=== PATIENT | female | born 1990 | race Asian ===

== ENCOUNTER → 2018-12-23 | Outpatient (CLI) | payer SELFPAY | END | disposition home or self-care (01) | LOC: LABMAIN 12:38 | PROVIDERS: ATTEND Emergency Medicine | DX: J02.9 Acute pharyngitis, unspecified (principal) | CPT/HCPCS: 87081; 87430 ==

== ENCOUNTER → 2019-05-17 | Outpatient (CLI) | payer MEDICAID ==
[2019-05-17 09:06] VITALS: BP 106/68; PULSE 66; RESP 16; TEMP 98; BMI 20.8
--- NOTE | 2019-05-17 10:09 | P.HPOB ---
History of Present Illness H&P Date: 05/17/19 Chief Complaint: The patient is here for her routine gynecologic exam. This is a 29-year-old G0 with an LMP of 2017. The patient uses Nexplanon for control. This is her 2nd one. Her current one was placed in August 2017. The patient has been experiencing cramping with sexual intercourse and this can last for one or 2 days after sexual intercourse. This has been going on for about 1 1/2 months. She has been with her current partner for 2 months. The cramping was not initially noticed when she 1st became sexually active with her current partner. The cramping seems to occur immediately with sexual intercourse. She did have one day of vaginal discharge, but she states it did resolve. She tried taking a course of Bactrim which did not seem to help with the cramping. She denies fever, dysuria or urinary frequency. Her last pelvic exam was about 2 years ago. Review of Systems Her weight has been stable. She denies respiratory or cardiac problems. G.I.: she has had issues with constipation and hemorrhoids, but this is not new. Past Medical History Past Medical History: No Reported History Additional Past Medical History / Comment(s): PAST RN IV THERAPY HISTORY: She has no history of STDs. History of Any Multi-Drug Resistant Organisms: None Reported Past Surgical History: Breast Surgery Additional Past Surgical History / Comment(s): Left breast biopsy which showed fibrocystic changes. Past Psychological History: No Psychological Hx Reported Smoking Status: Never smoker Past Alcohol Use History: Occasional (2 or 3 per week) Past Drug Use History: None Reported Additional History: She is single and has been with her boyfriend since February 2019. She does not live with him. 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 - Past Family History Mother Additional Family Medical History / Comment(s): Fibrocystic changes of the breast. She denies family history of cancer of the breast, uterus, ovaries, or Colon. Father Family Medical History: No Reported History Medications and Allergies Home Medications Medication Instructions Recorded Confirmed Type Etonogestrel [Nexplanon] 1 implant SQ [id number] 05/17/19 05/17/19 History Allergies Allergy/AdvReac Type Severity Reaction Status Date / Time No Known Allergies Allergy Unverified 05/17/19 08:50 Exam Vital Signs Temp Pulse Resp BP Pulse Ox 05/17/19 08:55 98.0 F 66 16 106/68 98 Height 5'2", weight 114 pounds, BMI 20.9. This is a well-developed well-nourished female who is alert and oriented times 3 in no acute distress. HEENT: Within normal limits. NECK: Supple without mass or thyromegaly. CHEST AND LUNGS: Clear to auscultation. HEART: Regular rate and rhythm. BREASTS: there is a palpable lump measuring approximately 1.5 x 1.0 cm at the 3 o'clock position of the left breast. The lump is nontender and non- erythematosus. The lump is somewhat firm. She states this was where she had a biopsy several years ago which showed fibrocystic changes. She believes it has gotten slightly larger since she has been on Nexplanon for control. There are no other palpable masses. The breasts are nontender. AXILLARY EXAM: Negative for adenopathy. BACK: Negative for CVA tenderness. ABDOMEN: Soft, nontender, without palpable masses. PELVIC EXAM: Normal external genitalia. Cervix and vagina appear normal. There is no unusual discharge. There is no evidence of prolapse. The uterus is slightly retroverted, nongravid size and nontender. There are no palpable adnexal masses. There is mild left adnexal tenderness and no right adnexal tenderness. RECTAL EXAM: negative for mass or tenderness. EXTREMITIES: Nontender. IMPRESSION: 1. 29 year old female with a 1 1/2 month history of crampy dyspareunia with pelvic cramping for 1 to 2 days after sexual intercourse. 2. Left adnexal tenderness. 3. History of Nexplanon use for control. 4. Differential diagnosis will include ovarian cyst, STD such as GC or chlamydia, UTI, and less likely . 5. Left breast mass with history of fibrocystic changes. The mast measures approximately 1.5 x 1.0 cm. The mass has gotten slightly larger with Nexplanon use, according to the patient. PLAN: 1. Pap smear was performed. 2. Self breast awareness was discussed with the patient. 3. GC and chlamydia testing has been obtained from the cervix. 4. The patient will be scheduled for a pelvic ultrasound. The order slip was given to the patient. 5. Clean catch midstream urine has been obtained for a urinalysis, culture and sensitivity and urine hCG. 6. Left breast ultrasound was recommended. The order slip was given to the patient for this. Consider referral for further evaluation of the breast mass. 7. She was advised to return in one year for her annual well woman exam and PRN.
[2019-05-17 11:30] LABS: Amorphous Sediment,Urine Many /hpf; Appearance,Urine Turbid (Clear); Bilirubin,Urine Negative (Negative); Blood,Urine Negative (Negative); Color,Urine Yellow; Glucose,Urine (UA) Negative (Negative); Ketones,Urine Negative (Negative); Leukocyte Esterase,Urine Negative (Negative); Mucus,Urine Rare /hpf; Nitrite,Urine Negative (Negative); PH, Urine 6.5 (5.0-8.0); Protein,Urine Negative (Negative); Specific Gravity,Urine 1.024 (1.001-1.035); Urobilinogen,Urine <2.0 mg/dL (<2.0); WBC,Urine 1 /hpf (0-5)
[2019-05-18 16:03] LABS: C. trachomatis,PCR Negative (Neg,Equiv); Chlamydia trachomatis Source Cervix; N. gonorrhoeae,PCR Negative (Neg,Equiv); Neisseria Source Cervix
== END ==
LOC: WWCWWP 08:47
PROVIDERS: ATTEND Obstetrics & Gynecology
DX: N94.10 Unspecified dyspareunia (principal); R10.2 Pelvic and perineal pain
CPT/HCPCS: 81001; 81025; 87086; 87491; 87591

== ENCOUNTER → 2019-05-31 | Outpatient (CLI) | payer MEDICAID ==
--- NOTE | 2019-05-31 09:09 | USB ---
Reason for exam: clinical finding. History: Benign excisional biopsy of the left breast, 2010. Indicated problem(s): palpable abnormality and lump or thickening in the left breast. Physical Findings: Nurse Summary: 1.5cm nodule, firm, movable (nurse dw). US Breast LT Left complete breast ultrasound includes all four quadrants, the retroareolar region and axilla. Finding demonstrates a 1.8 x 1.3 x 2.1cm oval, solid lesion at 3 o'clock, taller than wide, biopsy recommended and a 0.9 x 1.1 x 1.1cm oval, solid lesion at 3 o'clock. These results were verbally communicated with the patient and result sheet given to the patient on 05/31/19. ASSESSMENT: Suspicious, BI-RAD 4 RECOMMENDATION: Ultrasound core biopsy of the left breast. Patient states she is going to try and get reports and disc from previous biopsy in [place]. Patient states she does not want to be scheduled at this time for a biopsy or surgical consult. Patient told to contact Dr. Adhikari's office regarding choice of surgeon if films are not located. Called Dr. Adhikari with mammographic findings. PRELIMINARY REPORT CALLED AND FAXED TO DR. ADHIKARI ON 05/31/19.
--- NOTE | 2019-05-31 16:47 | US ---
EXAMINATION TYPE: US pelvis complete transvag DATE OF EXAM: 05/31/2019 COMPARISON: NONE CLINICAL HISTORY: ,R10.2 pelvic pain,R68.89 abn pelv. TECHNIQUE: Transvaginal (TV) and Transabdominal (TA) . Transabdominal sonographic images of the pel vis were acquired. Transvaginal sonographic images were medically necessary to better assess the fol lowing anatomy: left ovary Date of LMP: 2 years ago, patient has arm implant control. EXAM MEASUREMENTS: Uterus: 8.5 x 3.3 x 4.7 cm Endometrial Stripe: 0.6 cm Right Ovary: 3.3 x 3.6 x 2.0 cm Left Ovary: 2.5 x 2.2 x 1.4 cm 1. Uterus: Retroverted wnl 2. Endometrium: measures 0.6 cm 3. Right Ovary: 2.5 x 1.8 x 2.2 cm cyst with septation and daughter cyst 4. Left Ovary: wnl 5. Bilateral Adnexa: wnl 6. Posterior cul-de-sac: no free fluid IMPRESSION: 1. Septated cyst right ovary. Follow-up is recommended.
--- NOTE | 2019-06-01 14:04 | P.PN ---
Progress Note - Text Progress Note Date: 06/01/19 OUTPATIENT FOLLOW-UP NOTE TEST(S)/RESULTS: Pelvic ultrasound on 05/31/2019 shows a septated cyst measuring approximately 2.5 cm and the right ovary with a cyst within the cyst. METHOD OF NOTIFICATION: She was notified by phone. PATIENT COMMENTS: The patient is trying to get old breast imaging studies to be able to compare the ultrasound findings from the Left breast done on 05/31/2019. DIAGNOSIS: Right ovarian cyst measuring 2.5 cm with internal septation. DISCUSSION: PLAN: The pelvic ultrasound in 2 months. The order slip will be mailed to the patient. Await final recommendation regarding the left breast mass. The patient is aware that biopsy is being recommended if previous breast imaging is not obtainable or if this is considered a significant change. Consider referral for laparoscopy if symptoms pelvic persist beyond 2 months or if concerning findings on ultrasound in 2 months.
== END | disposition home or self-care (01) ==
LOC: RADUSWWP 06:56
PROVIDERS: ATTEND Obstetrics & Gynecology
DX: N83.201 Unspecified ovarian cyst, right side (principal); N63.20 Unspecified lump in the left breast, unspecified quadrant
CPT/HCPCS: 76830; 76856

== ENCOUNTER → 2020-05-16 | Day surgery (SDC) | payer MEDICAID ==
[2020-05-16 12:32] VITALS: BP 98/66; PULSE 90; RESP 18; TEMP 98.4
--- NOTE | 2020-05-16 13:10 | P.PCN ---
Date of Procedure: 05/16/20 Preoperative Diagnosis: Request to remove Nexplanon contraceptive implant Postoperative Diagnosis: Same Procedure(s) Performed: Nexplanon implant removal Anesthesia: local Surgeon: Jose Adhikari Estimated Blood Loss (ml): 1 Pathology: none sent Condition: stable Disposition: same day Indications for Procedure: This was a 30-year-old G0 with a LNMP of 2017. She had a Nexplanon control implant placed in August 2017. She is no longer in need of control at this time and has had some infrequent vaginal spotting over the past 2 months. She would like to have the implant removed. Operative Findings: The Nexplanon implant was located between the bicep and tricep muscles of the left upper arm and was superficial. Description of Procedure: We discussed the procedure including possible risks and complications. All questions were answered. The patient was put in the supine position and the left fist was raised to the level of the head. The implant was palpated and was superficial. Betadine was used for prepping the area. Lidocaine 1% was used for local anesthesia and 1 mL was used. Following determination of adequate anesthesia a 3 mm incision was made at the previous scar site at the lateral end of the implant. The implant was pushed into the incision site and was grasped with a hemostat clamp. There was slight encapsulation of the implant which was removed with gauze. The implant was then removed without difficulty. The implant was measured and measured exactly 4 cm. The intact implant was shown to the patient and she was shown the measurement of the implant. Pressure was used to obtain hemostasis. The loss was minimal. Some antibiotic ointment was applied. A Steri-Strip was applied. And gauze was then applied over the incision covered by paper tape. The patient tolerated the procedure well. Postprocedure blood pressure: 108/73. Pulse 81. Pulse oximeter 98%. The patient was instructed to leave the dressing on for 24 hours. She will remove the Steri-Strip in 2 days or sooner if it falls off. She will apply Neosporin twice daily until it is healed. She was instructed to call if she has unusual bleeding, fever, redness, unusual pain or any problems. She was instru cted to use condoms if she is sexually active. She was also instructed to call if she would like to discuss control options in the future.
== END ==
LOC: WWCWWP 12:09
PROVIDERS: ATTEND Obstetrics & Gynecology
DX: Z53.8 Procedure and treatment not carried out for other reasons (principal)

== ENCOUNTER → 2021-02-12 | Outpatient (CLI) | payer MEDICAID ==
--- NOTE | 2021-02-12 12:01 | XR ---
EXAMINATION TYPE: XR chest 2V DATE OF EXAM: 02/12/2021 COMPARISON: NONE TECHNIQUE: PA and lateral views submitted. HISTORY: Annual checkup FINDINGS: The lungs are clear and there is no pneumothorax, pleural effusion, or focal pneumonia. Heart size normal. No overt failure. IMPRESSION: 1. No acute process.
== END | disposition home or self-care (01) ==
LOC: RADXRMAIN 11:05
PROVIDERS: ATTEND Family Medicine
DX: Z00.00 Encounter for general adult medical examination without abnormal findings (principal)
CPT/HCPCS: 71046